=== PATIENT | female | born 1970 | race Caucasian/White ===

== ENCOUNTER 2018-08-08 18:40 | Emergency (ER) | payer SELFPAY ==
[~2018-08-08] VITALS: Ht 162.6 cm; Wt 72.6 kg
[2018-08-08 18:50] VITALS: BP 157/99
== END 2018-08-08 19:09 | disposition home or self-care (01) ==
LOC: ER 18:40
DX: T14.8XXA Other injury of unspecified body region, initial encounter (principal); V43.52XA Car driver injured in collision with other type car in traffic accident, initial encounter; Y93.89 Activity, other specified; Y99.8 Other external cause status; Y92.410 Unspecified street and highway as the place of occurrence of the external cause